=== PATIENT | female | born 1990 | race Hispanic/Latino ===

== ENCOUNTER 2018-10-20 02:39 | Emergency (ER) | payer MEDICAID, OTHER ==
[2018-10-20 03:04] LABS: APPEARANCE,URINE Clear (CLEAR); BILIRUBIN,URINE Negative (NEGATIVE); COLOR,URINE Yellow (YELLOW); GLUCOSE, URINE (UA) Negative (NEGATIVE); KETONES,URINE Negative (NEGATIVE); LEUKOCYTE ESTERASE ,URINE Trace (NEGATIVE); NITRATE,URINE Negative (NEGATIVE); OCCULT BLOOD,URINE Large (NEGATIVE); PH,URINE 5.5 (5.0-8.0); PROTEIN,URINE Negative (NEGATIVE)
[2018-10-20 03:08] LABS: HCG,QUAL RESULT POSITIVE (NEGATIVE)
[2018-10-20 03:14] LABS: BACTERIA,URINE None Seen /HPF (None Seen); MUCUS,URINE Few LPF (None Seen); SQUAMOUS EPITHELIAL CELL,UR Few /HPF (0-2); WBC,URINE None Seen /HPF (0-1)
[2018-10-20] MEDS ORDERED: SODIUM CHLORIDE 0.9% 1000ML 1,000 ML IV ONE (03:41)
[2018-10-20 04:07] LABS: BASOPHILS % (AUTO) 0.8 % (0.0-5.0); EOSINOPHILS % (AUTO) 1.9 % (0.0-8.0); HEMATOCRIT 43.6 % (36-48); LYMPHOCYTES % (AUTO) 26.7 % (21.0-51.0); MEAN CORPUSCULAR HEMOGLOBIN 26.2 pg (27.0-33.0); MEAN CORPUSCULAR HGB CONC 32.7 g/dL (32.0-36.0); MEAN CORPUSCULAR VOLUME 80.1 fL (79-99); MONOCYTES % (AUTO) 5.8 % (3.0-13.0); NEUTROPHILS % (AUTO) 64.8 % (40.0-77.0); PLATELET COUNT (AUTO) 223 K/uL (130-400); RED BLOOD CELL COUNT(AUTO) 5.44 MIL/uL (4.00-5.50); RED CELL DISTRIBUTION WIDTH 15.1 % (11.0-15.5); WHITE BLOOD COUNT (AUTO) 10.6 K/uL (4.8-10.8)
[2018-10-20 04:14] LABS: CREATININE 0.7 mg/dL (0.5-1.5); POTASSIUM 3.6 mmol/L (3.5-5.1)
[2018-10-20 04:40] LABS: ALBUMIN 3.9 g/dL (3.5-5.0); BILIRUBIN,TOTAL 0.2 mg/dL (0.2-1.0)
== END 2018-10-20 05:06 | disposition home or self-care (01) ==
LOC: EDH 02:39
DX: O20.0 Threatened abortion (principal); Z3A.08 8 weeks gestation of pregnancy
CPT/HCPCS: 36415; 76801; 80053; 81001; 81025; 84702; 85025; 86850; 86900; 86901; 99284; J7030

== ENCOUNTER 2019-05-08 14:02 | Inpatient (IN) | payer MEDICAID | END 2019-05-09 18:30 | disposition home or self-care (01) | LOC: EDH 14:02 → LDH 14:03 → WSH 20:26 ==

== ENCOUNTER 2019-09-27 08:38 | Emergency (ER) | payer MEDICAID ==
[~2019-09-27 08:38] MED LIST: PREN1COM14 PO
[2019-09-27] MEDS ORDERED: ONDANSETRON HCL 4 MG/2 ML VIAL ONE (09:32)
[2019-09-27] MEDS ORDERED: MORPHINE SULFATE 4 MG/1ML SYG ONE (09:32)
[2019-09-27] MEDS ORDERED: SODIUM CHLORIDE 0.9% 1000ML 1,000 ML IV ONE ×2 (09:33→12:22)
[2019-09-27 09:36] LABS: BASOPHILS % (AUTO) 0.6 % (0.0-5.0); EOSINOPHILS % (AUTO) 2.5 % (0.0-8.0); HEMATOCRIT 34.8 % (36-48); LYMPHOCYTES % (AUTO) 16.6 % (21.0-51.0); MEAN CORPUSCULAR HEMOGLOBIN 21.2 pg (27.0-33.0); MEAN CORPUSCULAR HGB CONC 30.5 g/dL (32.0-36.0); MEAN CORPUSCULAR VOLUME 69.6 fL (79-99); MONOCYTES % (AUTO) 5.4 % (3.0-13.0); NEUTROPHILS % (AUTO) 74.4 % (40.0-77.0); PLATELET COUNT (AUTO) 297 K/uL (130-400); RED CELL DISTRIBUTION WIDTH 16.5 % (11.0-15.5); WHITE BLOOD COUNT (AUTO) 12.1 K/uL (4.8-10.8)
[2019-09-27 09:40] LABS: APPEARANCE,URINE Cloudy (CLEAR); BILIRUBIN,URINE Negative (NEGATIVE); COLOR,URINE Yellow (YELLOW); GLUCOSE, URINE (UA) Negative (NEGATIVE); KETONES,URINE Negative (NEGATIVE); LEUKOCYTE ESTERASE ,URINE Small (NEGATIVE); NITRATE,URINE Negative (NEGATIVE); OCCULT BLOOD,URINE Negative (NEGATIVE); PROTEIN,URINE Negative (NEGATIVE)
[2019-09-27 09:41] LABS: CREATININE 0.7 mg/dL (0.5-1.5); POTASSIUM 3.8 mmol/L (3.5-5.1)
[2019-09-27 09:45] LABS: ALBUMIN 3.6 g/dL (3.5-5.0); BILIRUBIN,TOTAL 0.1 mg/dL (0.2-1.0); TOTAL PROTEIN, SERUM 7.6 g/dL (6.0-8.3)
[2019-09-27 09:45] LABS: HCG,QUAL RESULT POSITIVE (NEGATIVE)
[2019-09-27 10:13] LABS: BACTERIA,URINE Moderate /HPF (None Seen)
[2019-09-27] MEDS ORDERED: SODIUM CHLORIDE 0.9% 100 ML IV ONE (11:21)
[2019-09-27] MEDS ORDERED: CEFTRIAXONE SODIUM 1 GM ONE (11:21)
== END 2019-09-27 13:20 | disposition home or self-care (01) ==
LOC: EDH 08:38
DX: O99.611 Diseases of the digestive system complicating pregnancy, first trimester (principal); K80.20 Calculus of gallbladder without cholecystitis without obstruction; O23.41 Unspecified infection of urinary tract in pregnancy, first trimester; O99.331 Smoking (tobacco) complicating pregnancy, first trimester; Z3A.01 Less than 8 weeks gestation of pregnancy
CPT/HCPCS: 36415; 76705; 80053; 81001; 81025; 83690; 84702; 85025; 96374; 96375; 99285; J0696; J2270; J2405; J7030 ×2

== ENCOUNTER 2020-05-07 05:12 | Inpatient (IN) | payer MEDICAID ==
[~2020-05-07] VITALS: Ht 154.9 cm; Wt 94.8 kg
[2020-05-07] MEDS ORDERED: LACTATED RINGERS 1000ML 1,000 ML IV SCH (05:30)
[2020-05-07] MEDS ORDERED: LACTATED RINGERS 1000ML 1,000 ML IV PRN (05:49)
[2020-05-07 06:00] LABS: HEMATOCRIT 32.5 % (36-48); MEAN CORPUSCULAR HEMOGLOBIN 20.5 pg (27.0-33.0); MEAN CORPUSCULAR HGB CONC 30.2 g/dL (32.0-36.0); MEAN CORPUSCULAR VOLUME 67.8 fL (79-99); PLATELET COUNT (AUTO) 235 K/uL (130-400); RED BLOOD CELL COUNT(AUTO) 4.79 MIL/uL (4.00-5.50); RED CELL DISTRIBUTION WIDTH 18.5 % (11.0-15.5); WHITE BLOOD COUNT (AUTO) 10.3 K/uL (4.8-10.8)
[2020-05-07] MEDS ORDERED: OXYTOCIN-LR 20 UNITS/1000 ML 1,000 ML IV ONE (06:14)
[2020-05-07] MEDS ORDERED: OXYTOCIN-LR 20 UNITS/1000 ML 1,000 ML IV SCH ×2 (06:15)
[2020-05-07 06:21] LABS: AMPHET/METH SCREEN,URINE NEGATIVE (NEGATIVE); BARBITURATE SCREEN, URINE NEGATIVE (NEGATIVE); BENZODIAZEPINES SCREEN,URINE POSITIVE (NEGATIVE); CANNABINOID SCREEN,URINE NEGATIVE (NEGATIVE); COCAINE SCREEN,URINE NEGATIVE (NEGATIVE); OPIATE SCREEN,URINE NEGATIVE (NEGATIVE); PHENCYCLIDINE SCREEN,URINE NEGATIVE (NEGATIVE)
[2020-05-07 06:33] LABS: PLATELET MORPHOLOGY LARGE PLTS PRESENT
[2020-05-07] MEDS: IBUPROFEN 600 MG TABLET PO PRN ×2 (07:11→19:47)
[2020-05-07] MEDS ORDERED: BENZOCAINE/LANOLIN/ALOE VERA 60 ML AEROSOL TP PRN (07:15)
[2020-05-07] MEDS ORDERED: ACETAMINOPHEN 325 MG TAB PO PRN (07:15)
[2020-05-07] MEDS ORDERED: ACETAMINOPHEN-CODEINE 300/30MG TAB PO PRN (07:15)
[2020-05-07] MEDS ORDERED: LANOLIN 30GM OINTMENT TP PRN (07:15)
[2020-05-07] MEDS ORDERED: WITCH HAZEL 1 PAD TP PRN (07:15)
[2020-05-07 07:17] VITALS: BP 120/76
[2020-05-07] MEDS: DOCUSATE SODIUM 100 MG CAP PO SCH ×2 (08:51→19:47)
[2020-05-07 10:16] VITALS: BP 107/70
[2020-05-07 14:34] LABS: RAPID PLASMA REAGIN NONREACTIVE (NONREACTIVE)
[2020-05-07 16:00] VITALS: BP 117/72
--- NOTE | 2020-05-07 17:25 | NUR ---
REPORT GIVEN TO MATY BEASLEY FOR CONTINUITY OF CARE. PT IN STABLE CONDITION AND HAD NO COMPLAINTS AT THIS TIME.
--- NOTE | 2020-05-07 19:00 | NUR ---
safety Patient resting Quietly with infant in mothers arms. Side rails up, bed down with call mckeon in reach. No distress noted.
[2020-05-07 19:47] VITALS: BP 114/68
--- NOTE | 2020-05-07 19:47 | NUR ---
pain Patient c/o cramping. Motrin 600mg PO given. Patient states pain at level at 6
[2020-05-07 20:00] VITALS: BP 114/68
[2020-05-07 23:00] VITALS: BP 113/64
--- NOTE | 2020-05-07 23:22 | NUR ---
pain Patient C/O pain when breasting feeding at level at 6. Tylenol #3 x2 tabs for discomfort.
[2020-05-08 03:00] VITALS: BP 96/58
[2020-05-08 05:34] LABS: HEMATOCRIT 27.4 % (36-48); MEAN CORPUSCULAR HEMOGLOBIN 20.8 pg (27.0-33.0); MEAN CORPUSCULAR HGB CONC 29.9 g/dL (32.0-36.0); MEAN CORPUSCULAR VOLUME 69.4 fL (79-99); RED BLOOD CELL COUNT(AUTO) 3.95 MIL/uL (4.00-5.50); RED CELL DISTRIBUTION WIDTH 18.6 % (11.0-15.5); WHITE BLOOD COUNT (AUTO) 10.7 K/uL (4.8-10.8)
--- NOTE | 2020-05-08 08:10 | NUR ---
DR ARAIZA REPORT GIVEN TO DR ARAIZA VIA PHONE. PT MAY BE BE DISCHARGED HOME. PT TO FOLLOW-UP IN 1-[address] ARAIZA.
[2020-05-08] MEDS: DOCUSATE SODIUM 100 MG CAP PO SCH (09:10)
[2020-05-08 12:28] VITALS: BP 121/80
--- NOTE | 2020-05-08 12:28 | NUR ---
PT ROUNDS PT BONDING WITH BABY. PT STATES SHE IS WAITING SOCIAL SERVICE CONSULT. CASE MANAGEMENT NOTIFIED, STATES ROAD MANAGER WILL BE IN WITHIN THE HOUR. CALL JUAREZ WITHIN REACH.
--- NOTE | 2020-05-08 14:31 | NUR ---
SS CONSULT - POSITIVE UDS - BENZO SW spoke with patient regarding lab results that were positive for Benzos for her and her baby boy. Patient denies any hx of substance abuse to SW. She informed SW that she feeling a lot of pressure on 05/06/2020 and her grandmother gave her one of her medications that she gets from [place]. Patient states she did not ask name of medication or what it was for. She later asked her grandmother the name of medication and was informed that it was ALPRAXOLAM and bought in [place]. SW informed patient that medication was Xanax. Patient informed SW that she had only taken one time. SW did speak to nursery nurse, Bernadine and was informed that patient had admitted to taking it on 3 different occasions. Nursery Nurse also informed SW that transfer table operator had informed patient that she could have killed her baby taking medication of that nature. Patient lives with her three children - 14 yr old daughter, 9 yr old son, and 1 yr old daughter. She is presently from her spouse. She has no home services and is able to complete ADL's independently. Patient lives in a home with all utilities in place. She has reliable transportation - owns a jeep. Patient does not work but states she receives $500 from her spouse, $600 in [employer] and also receives [employer]. She has no legal issues pending and denies any hx of physical and emotional abuse and domestic violence. Patient also denies any hx of mental illness. Patient denies hx of substance abuse but does admit that she took medication given by grandmother without thinking of the affects it may have on her baby. Patient was made aware that call to CPS would be made and stated that she understood. Patient was also made aware that baby would not be able to be discharged home with her until clearance was received by CPS. Patient stated that she understood that as well. Report was made to CPS. Reference #: [id number]. LAKISHA spoke with Mary Grace ID#[id number]. Pending evaluation from CPS Therapy Tech at this time. Addendum: 05/08/20 at 1450 by ANTON LORENZO SS Amended: Links added.
--- NOTE | 2020-05-08 18:18 | NUR ---
CPS EVALUATION CPS Manager Support Services, Jacqueline Ambrocio and Ortiz Jackson came to meet with patient, regarding USD positive for Benzos. CPS Manager Support Services informed SW that baby, Kevin Hess, was going to be placed with baby's paternal grandmother, Jamee Westfall, until further notice. Manager Support Services stated that patient stated that she and her other 3 children plan to move in with baby's paternal grandmother. Copy of Safety plan provided to [facility] by CPS Manager Support Services. Baby's Paternal grandmother is here to mixing picker tender baby. Baby and patient will be discharged today.
--- NOTE | 2020-05-08 18:30 | NUR ---
DISCHARGE DISCHARGED HOME VIA WHEELCHAIR WITH IN ARMS, DEPARTED PER PERSONAL VEHICLE PER PRIVATE VEHICLE.
[2020-05-09 15:12] LABS: HEPATITIS Bs ANTIGEN SCREEN P Negative (Negative)
== END 2020-05-08 18:30 | disposition home or self-care (01) | DRG 560 ==
LOC: EDH 05:12 → OBSVTOIN 05:13 → LDH 05:13 → WSH 10:15
PROVIDERS: ADMIT Obstetrics & Gynecology; ATTEND Obstetrics & Gynecology
PROC: 10E0XZZ Delivery of Products of Conception, External Approach (ICD-10-PCS; principal; 2020-05-07)
DX: O80 Encounter for full-term uncomplicated delivery (principal); Z37.0 Single live birth; Z3A.38 38 weeks gestation of pregnancy
CPT/HCPCS: 36415; 80305; 85027; 86592; 86701; 86850; 86900; 86901; 87340; 87390; G0378; J2590; J7120